=== PATIENT | male | born 1995 | race Two or more races ===

== ENCOUNTER 2021-11-21 21:12 | Emergency (ER) | payer OTHER ==
[~2021-11-21] VITALS: Ht 180.3 cm; Wt 104.3 kg
[2021-11-21] MEDS ORDERED: HYDROXYZINE HCL25 MG PO (23:14)
== END 2021-11-21 23:24 | disposition home or self-care (01) ==
LOC: ER 21:12
DX: T50.B95A Adverse effect of other viral vaccines, initial encounter (principal); Y92.9 Unspecified place or not applicable